=== PATIENT | male | born 1945 | race African-American/Black ===

== ENCOUNTER 2022-02-09 23:13 | Emergency (ER) | payer OTHER ==
[~2022-02-09] VITALS: Ht 180.3 cm; Wt 108.1 kg
[2022-02-10] MEDS ORDERED: DEXT1SYP9 PO (01:06)
[2022-02-10 01:15] VITALS: BP 148/78
== END 2022-02-10 01:07 | disposition home or self-care (01) ==
LOC: ER 23:28
DX: R06.02 Shortness of breath (principal); R05.9 Cough, unspecified; E11.9 Type 2 diabetes mellitus without complications; I10 Essential (primary) hypertension
CPT/HCPCS: 71045